=== PATIENT | female | born 1985 | race American Indian/Alaskan Native ===

== ENCOUNTER → 2018-12-31 | Outpatient (CLI) | payer OTHER ==
[~2018-12-31] MED LIST: AMOX500 PO; AZIT250; BENZ100A PO; CEPH500 PO; CYCL10 PO; DIAZ5 PO; DOXY100 PO; HYDACE5 PO; IBUP600 PO; LEVFLO500 PO; NAPR500 PO; NAPR550 PO; Norco 5-325 Ta1 EACH PO; OXYACE5T PO; PRED10 PO; PROACE100 PO; PROM25 PO; RXCLIN PO; RXCYCL10 PO; RXNAPNA550 PO; RXOXYACE PO; RXTRAM50 PO; SULTRIDS PO; TRAM50 PO
[2018-12-31 15:51] LABS: Source, Urine Voided
[2018-12-31 16:42] LABS: Bilirubin, Urine Neg (Neg); Blood, Urine Neg (Neg); Glucose Qualitative, Urine Neg (Neg); Ketones, Urine Neg (Neg); Leukocyte Esterase, Urine 1+ (Neg); Nitrite, Urine Neg (Neg); Protein, Urine Neg (Neg); Specific Gravity, Urine 1.015 (1.003-1.022); Urobilinogen, Urine NORM (Normal)
[2018-12-31 16:58] LABS: Appearance, Urine Clear (Clear); Color, Urine Yellow (P-Yellow)
[2018-12-31 16:59] LABS: Bacteria Mod /hpf; Red Blood Cells, Urine 0-2 /hpf (0-2); Squamous Epithelial Cells Mod /hpf (Few); White Blood Cells, Urine 0-2 /hpf (0-5)
[2018-12-31 17:01] LABS: U Amphetamine Screen Not Detected; U Barbituate Screen Not Detected; U Benzodiazapine Screen Not Detected; U Buprenorphine Screen Not Detected; U Cannabinoids Screen Not Detected; U Cocaine Screen Not Detected; U Methadone Screen Not Detected; U Methamphetamine Screen Not Detected; U Opiates Screen Not Detected; U Oxycodone Screen DETECTED; U Phencyclidine Screen Not Detected
[2018-12-31 17:02] LABS: U Propoxyphene Screen Not Detected
== END | disposition home or self-care (01) ==
LOC: LAB 14:00 → LAB SHORT 14:00
PROVIDERS: Obstetrics & Gynecology
DX: Z34.01 Encounter for supervision of normal first pregnancy, first trimester (principal)
CPT/HCPCS: 81001; 87086; G0480

== ENCOUNTER → 2019-01-06 | Outpatient (CLI) | payer OTHER ==
[2019-01-11 19:06] LABS: CHLAMYDIA BY NAA Negative (Negative); GONOCOCCUS BY NAA Negative (Negative); HPV 16 Negative (Negative); HPV 18 Negative (Negative); HPV OTHER HR TYPES Negative (Negative); TRICH VAG BY NAA Negative (Negative)
== END | disposition home or self-care (01) ==
LOC: LAB SHORT 10:52 → LAB 10:52
PROVIDERS: Obstetrics & Gynecology
DX: Z36.89 Encounter for other specified antenatal screening (principal)
CPT/HCPCS: 87491; 87591; 87624; 87661; G0123

== ENCOUNTER 2019-05-29 10:10 | Inpatient (IN) | payer OTHER ==
[~2019-05-29] VITALS: Ht 162.6 cm; Wt 62.0 kg
[2019-05-29] MEDS ORDERED: OMEP20ER (10:47)
[2019-05-29] MEDS ORDERED: PRENATAL TABLE1 EAC2 PO (10:47)
[2019-05-29 11:22] LABS: BASOPHILS ABSOLUTE AUTO 0.06 K/mm3 (0.00-0.23); BASOPHILS PERCENT AUTO 0 % (0-2); EOSINOPHILS ABSOLUTE AUTO 0.06 K/mm3 (0.00-0.68); EOSINOPHILS PERCENT AUTO 0 % (0-6); Hematocrit 36.5 % (33.0-51.0); Hemoglobin 12.3 g/dL (11.5-16.0); IMMATURE GRAN ABSOLUTE AUTO 0.13 K/mm3 (0.00-0.10); IMMATURE GRAN PERCENT AUTO 1 % (0-1); LYMPHOCYTES ABSOLUTE AUTO 1.19 K/mm3 (0.84-5.20); LYMPHOCYTES PERCENT AUTO 6 % (21-46); MONOCYTES ABSOLUTE AUTO 0.99 K/mm3 (0.16-1.47); MONOCYTES PERCENT AUTO 5 % (4-13); Mean Corpuscular HGB 30.9 pg (26.0-34.0); Mean Corpuscular HGB Conc 33.7 g/dL (31.5-36.5); Mean Corpuscular Volume 92 fL (80-100); Mean Platelet Volume 11.1 fL (9.1-12.4); NEUTROPHILS ABSOLUTE AUTO 18.29 K/mm3 (1.96-9.15); NEUTROPHILS PERCENT AUTO 88 % (41-73); Platelet Count 161 K/mm3 (150-400); RDW Coefficient Variation 13.8 % (11.7-14.2); RDW Standard Deviation 45.9 fL (35.1-46.3); Red Blood Cell Count 3.98 M/mm3 (3.80-5.20); White Blood Cell Count 20.72 K/mm3 (4.00-11.30)
--- NOTE | 2019-05-30 09:20 | NUR ---
RN ROUNDED ON MOM AND NB TO DO EDUCATION. MOM ASLEEP HOLDING NB AT BREAST, NB ALSO APPEARED TO BE SLEEPING. RN WOKE MOM AND ASKED IS SHE COULD HELP HER WITH AND IF SHE HAD ANY QUESTIONS, MOM SHOOK HEAD AND REPLIED "NO". RN EXPLAIN THE RISKS OF CO-SLEEPING AND REMOVED NB WITH MOMS PERMISSION AND PLACED HIM IN OPEN CRIB AT BEDSIDE, RESWADDLED AND MOVED CRIB NEXT TO BED. REPORT GIVEN TO RN CARING FOR COUPLET.
--- NOTE | 2019-05-30 11:06 | NUR ---
PT RESTING IN BED. JUST FINISHED BF NB. ARCHIE PAIN AT THIS TIME. HAS HELP FROM HER SISTER IN THE ROOM RIGHT NOW. DECLINES NEED FOR ANOTHER ICE PACK ON PERINEUM. NO COMPLAINTS OR CONCERNS AT THIS TIME.
[2019-05-30 11:48] LABS: Hematocrit 30.1 % (33.0-51.0); Hemoglobin 10.2 g/dL (11.5-16.0); Mean Corpuscular HGB 31.5 pg (26.0-34.0); Mean Corpuscular HGB Conc 33.9 g/dL (31.5-36.5); Mean Corpuscular Volume 93 fL (80-100); Mean Platelet Volume 11.1 fL (9.1-12.4); Platelet Count 158 K/mm3 (150-400); RDW Coefficient Variation 13.7 % (11.7-14.2); RDW Standard Deviation 46.4 fL (35.1-46.3); Red Blood Cell Count 3.24 M/mm3 (3.80-5.20); White Blood Cell Count 23.07 K/mm3 (4.00-11.30)
--- NOTE | 2019-05-30 14:06 | NUR ---
DISCUSSED WITH PATIENT WHAT HER LIVING SITUATION WAS AT HOME AND WHAT RESOURCES SHE HAD AVAILABLE TO HER. SHE REPORTS SHE LIVES AT HOME WITH HER DISABLED MOTHER. SHE IS SIGNED UP WITH [facility] AND HAS HAD A NURSE WHO WANTED TO COME VISIT HER AT HOME BUT THEN DECLINED HER COMING. ENCOURAGED PATIENT TO SIGN UP WITH [employer]. DISCUSSED SENDING A CORE REFERRAL AND HAVE SOMEONE AT LEAST GIVE HER A CALL ATHOME THE FIRST WEEK HOME. PT CONSENTS TO THAT. CORE REFERRAL SENT.
--- NOTE | 2019-05-30 14:45 | NUR ---
RN ROUNDED ON MOM AND NB TO DISCUSS . RN TALK WITH MOM ABOUT THE IMPORTANCE OF LATCHING NB CORRECTLY. NB DUE TO EAT. RN SHOWED MOM HOW TO GET NB SKIN TO SKIN, LINE NOSE UP WITH MOUTH, COMPRESS BREAST TO HELP NB GET MORE AREOLA IN MOUTH. INITIALLY MOM LATCH NB ON JUST NIPPLE AND MOM STATES IT WAS SUPER PAINFUL AND WAS YELLING. RN SHOWED MOM HOW TO DELATCH NB AND "HAMBURGER" BREAST TO GET A DEEPER LATCH. MOM DID NOT YELL OUT AND REPORTS THAT THE LATCH WAS ALOT BETTER. MOM VERBALIZED UNDERSTANDING AND DENIES ANY FURTHER QUESTIONS OR CONCERNS. RN ENCOURAGED MOM TO USE LANOLIN AFTER .
[2019-05-31 09:08] LABS: U Amphetamine Screen Not Detected; U Barbituate Screen Not Detected; U Benzodiazapine Screen Not Detected; U Methamphetamine Screen Not Detected
[2019-05-31 09:29] LABS: U Cocaine Screen Not Detected; U Methadone Screen Not Detected; U Opiates Screen Not Detected
[2019-05-31 09:30] LABS: U Buprenorphine Screen Not Detected; U Cannabinoids Screen Not Detected; U Oxycodone Screen Not Detected; U Propoxyphene Screen Not Detected
[2019-05-31 11:38] LABS: BASOPHILS ABSOLUTE AUTO 0.04 K/mm3 (0.00-0.23); BASOPHILS PERCENT AUTO 0 % (0-2); EOSINOPHILS ABSOLUTE AUTO 0.13 K/mm3 (0.00-0.68); EOSINOPHILS PERCENT AUTO 1 % (0-6); Hematocrit 29.9 % (33.0-51.0); IMMATURE GRAN ABSOLUTE AUTO 0.11 K/mm3 (0.00-0.10); IMMATURE GRAN PERCENT AUTO 1 % (0-1); LYMPHOCYTES ABSOLUTE AUTO 1.33 K/mm3 (0.84-5.20); LYMPHOCYTES PERCENT AUTO 8 % (21-46); MONOCYTES ABSOLUTE AUTO 0.84 K/mm3 (0.16-1.47); MONOCYTES PERCENT AUTO 5 % (4-13); Mean Corpuscular HGB 31.4 pg (26.0-34.0); Mean Corpuscular HGB Conc 33.4 g/dL (31.5-36.5); Mean Corpuscular Volume 94 fL (80-100); Mean Platelet Volume 10.7 fL (9.1-12.4); NEUTROPHILS ABSOLUTE AUTO 13.61 K/mm3 (1.96-9.15); NEUTROPHILS PERCENT AUTO 85 % (41-73); Platelet Count 180 K/mm3 (150-400); RDW Standard Deviation 47.9 fL (35.1-46.3); Red Blood Cell Count 3.18 M/mm3 (3.80-5.20); White Blood Cell Count 16.06 K/mm3 (4.00-11.30)
[2019-05-31] MEDS ORDERED: IBUP800 PO (11:57)
--- NOTE | 2019-05-31 13:00 | NUR ---
ASSUME PT CARE. PLAN TO D/C TO BOARDER STATUS. DISCUSSING BOARDER STATUS WITH PT. PT SEEMS OVERWHELMED WITH ALL THE D/C INSTRUCTIONS. GOING SLOW THROUGH D/C INSTRUCTIONS. PT ASKING QUESTIONS. PT REASSURED THAT [employer] STILL AVAILABLE FOR QUESTIONS THEY COME TO HER. HER SISTER PLANS TO HELP PT AT HOME WHEN SHE CAN. THEY DO NOT LIVE TOGETHER AND HER SISTER HAS A JOB. PT LIVES WITH HER DISABLED MOTHER WHO IS OF NO ASSISTANCE AT THIS TIME. DISCUSSED WITH PT HAVING SOME RESOURCE PEOPLE AVAILABLE IF SHE FEELS OVERWHELMED. DISCUSS RISKS OF SHAKING BABY SYNDROME IF PT WERE TO GET EXHAUSTED. DISCUSSED SAFER TO LAY BABY DOWN IN CRIB WITH NOTHING AROUND BABY AND OKAY FOR NB TO CRY. PT TO CHECK ON NB EVERY 10 MIN OR SO TO MAKE SURE BABY IS SAFE AND EVEN AFTER NB IS QUIET TO MAKE SURE NB IS SAFE. PT VERBALIZES UNDERSTANDING. PT INFORMED SHE CAN CALL ISIDRO OR DR ANDUJAR IF SHE FEELS ANY S/S OF PP DEPRESSION. PT VERBALIZES UDNERSTANDING
--- NOTE | 2019-05-31 13:37 | NUR ---
d/c instructions discussed and signed. pt asks appropriate questions. d/c instructions discussed with her sister at the bedside too.
--- NOTE | 2019-05-31 13:54 | NUR ---
D/C TO BOARDER STATUS
== END 2019-05-31 13:55 | disposition home or self-care (01) | DRG 807 ==
LOC: BC 10:10 → OBS 10:10 → BC 10:14 → OBS 10:28 → BC 10:31
PROVIDERS: Obstetrics & Gynecology; ADMIT Advanced Practice Midwife
PROC: 10907ZC Drainage of Amniotic Fluid, Therapeutic from Products of Conception, Via Natural or Artificial Opening (ICD-10-PCS; 2019-05-29)
PROC: 10H07YZ Insertion of Other Device into Products of Conception, Via Natural or Artificial Opening (ICD-10-PCS; 2019-05-29)
PROC: 3E0R3BZ Introduction of Anesthetic Agent into Spinal Canal, Percutaneous Approach (ICD-10-PCS; 2019-05-29)
PROC: 10E0XZZ Delivery of Products of Conception, External Approach (ICD-10-PCS; principal; 2019-05-30)
PROC: 0HQ9XZZ Repair Perineum Skin, External Approach (ICD-10-PCS; 2019-05-30)
DX: O99.334 Smoking (tobacco) complicating childbirth (principal); Z37.0 Single live birth; Z3A.39 39 weeks gestation of pregnancy; F17.210 Nicotine dependence, cigarettes, uncomplicated; O70.0 First degree perineal laceration during delivery; O76 Abnormality in fetal heart rate and rhythm complicating labor and delivery
CPT/HCPCS: 36415; 51702; 59070; 85025; 85027; 86850; 86900; 86901; J1885; J2001; J2210; J2590; J3010; J7120

== ENCOUNTER 2021-11-13 06:26 | Observation (INO) | payer OTHER ==
[~2021-11-13] VITALS: Ht 162.6 cm; Wt 59.0 kg
[~2021-11-13 06:26] MED LIST changes: +IBUP800 PO; +OMEP20ER; +PRENATAL TABLE1 EAC2 PO
[2021-11-13 07:55] LABS: BASOPHILS ABSOLUTE AUTO 0.02 K/mm3 (0.00-0.23); BASOPHILS PERCENT AUTO 0 % (0-2); EOSINOPHILS ABSOLUTE AUTO 0.14 K/mm3 (0.00-0.68); EOSINOPHILS PERCENT AUTO 1 % (0-6); Hematocrit 29.4 % (33.0-51.0); Hemoglobin 9.8 g/dL (11.5-16.0); IMMATURE GRAN ABSOLUTE AUTO 0.07 K/mm3 (0.00-0.10); IMMATURE GRAN PERCENT AUTO 1 % (0-1); LYMPHOCYTES ABSOLUTE AUTO 0.92 K/mm3 (0.84-5.20); LYMPHOCYTES PERCENT AUTO 9 % (21-46); MONOCYTES ABSOLUTE AUTO 0.47 K/mm3 (0.16-1.47); MONOCYTES PERCENT AUTO 4 % (4-13); Mean Corpuscular HGB Conc 33.3 g/dL (31.5-36.5); Mean Corpuscular Volume 90 fL (80-100); Mean Platelet Volume 10.3 fL (9.1-12.4); NEUTROPHILS ABSOLUTE AUTO 9.02 K/mm3 (1.96-9.15); NEUTROPHILS PERCENT AUTO 85 % (41-73); Platelet Count 166 K/mm3 (150-400); RDW Coefficient Variation 13.8 % (11.7-14.2); RDW Standard Deviation 45.6 fL (35.1-46.3); Red Blood Cell Count 3.27 M/mm3 (3.80-5.20); White Blood Cell Count 10.64 K/mm3 (4.00-11.30)
[2021-11-13 10:57] LABS: Source, Urine Clean Catch
[2021-11-13 11:14] LABS: Appearance, Urine Hazy (Clear); Bilirubin, Urine Neg (Neg); Blood, Urine Neg (Neg); Color, Urine Yellow (P-Yellow); Glucose Qualitative, Urine Neg (Neg); Ketones, Urine Neg (Neg); Leukocyte Esterase, Urine Neg (Neg); Nitrite, Urine Neg (Neg); Protein, Urine 1+ (Neg); Urobilinogen, Urine NORM (Normal)
[2021-11-13 12:17] LABS: Red Blood Cells, Urine 0-2 /hpf (0-2)
[2021-11-13 12:18] LABS: Bacteria Many /hpf; Squamous Epithelial Cells Mod /hpf (Few)
[2021-11-13 12:40] LABS: U Amphetamine Screen DETECTED; U Barbituate Screen Not Detected; U Benzodiazapine Screen Not Detected; U Buprenorphine Screen Not Detected; U Cannabinoids Screen Not Detected; U Cocaine Screen Not Detected; U Methadone Screen Not Detected; U Methamphetamine Screen DETECTED; U Opiates Screen DETECTED; U Oxycodone Screen Not Detected; U Phencyclidine Screen Not Detected; U Propoxyphene Screen Not Detected
--- NOTE | 2021-11-13 19:51 | NUR ---
RN ENTERED ROOM TO PERFORM SHIFT ASSESSMENT. PT ASLEEP ON SUPPORT PERSON BED. RN ATTEMPTED TO WAKE PT FOR VITALS AND ASSESSMENT AND PT DECLINED THIS AT THIS TIME AND CONTINUED TO SLEEP AFTER RN ASKED PT TWICE IF IT WAS OKAY TO PERFORM BOTH . RN ENCOURAGED PT TO PRESS CALL BUTTON WHEN AWAKE. IV LINES VISUALIZED IN PLACE AND PUMP SETTINGS FOR MAG AND LR WERE CORRECT AT THIS TIME.
[2021-11-14 07:10] LABS: HBSAG SCREEN Negative (Negative); HIV AB/P24 AG SCREEN Non Reactive (Non Reactive)
--- NOTE | 2021-11-14 08:16 | NUR ---
This RN tried to get assessment on pt this morning and pt is snoring and when trying to arouse, mumbles "no" to me when i ask her if i can get her babies on or if shes having pain or contractions. pt continues on magsulfate at 2 grams/hour and is not allowing this rn to perform reflex assessment or any other interventions. Susan support person "edward" awoke when I asked Meche if I could monitor the babies and edward told meche that she needed to let me and meche continued to mumble and say no. I told Edward and Meche to please call me when she awoke so that I could do an NST and evaluate if she was having contractions. Pt VSS at this time, will try in an hour if patient hasn't called to do NST and evaluate UCs.
--- NOTE | 2021-11-14 08:58 | NUR ---
RN CALLED [facility], TO REPORT NO CARE COUPLED WITH CONFIRMED METH/OPIOD USED DURING . INFORMATION TAKEN, THEY WILL DECIDE WITH TO DO WITH THAT.
[2021-11-14] MEDS ORDERED: SERT100 PO ×2 (10:38→10:40)
[2021-11-14] MEDS ORDERED: Ferosul325 MG PO (10:39)
--- NOTE | 2021-11-14 11:40 | NUR ---
Pt given written and verbal discharge instructions. Meds send to [facility] to dr rosa. I stressed the fact that she must seek regular care being high risk with twins, drug abuse, and having contractions at 28 weeks. Meche irritable but verbalizes understanding. iv dc/d and send home with sister Edward who plans to drive Edward to her Aunt Yazmin's house and establish care. Meche verbalizes labor precautions and went to return to the hospital of if emergency. paperwork signed, wheelchaired out to [employer] vehicle in which she discharged home with.
--- NOTE | 2021-11-14 11:45 | NUR ---
mag sulfate discontinued at 10:[address] rosa orders and new orders for pt to dc home with sister emmanuel
== END 2021-11-14 11:25 | disposition home or self-care (01) ==
LOC: BC 06:26 → OBS 06:26 → BC 10:51
PROVIDERS: Family Medicine; ADMIT Obstetrics & Gynecology
DX: O47.03 False labor before 37 completed weeks of gestation, third trimester (principal); O98.513 Other viral diseases complicating pregnancy, third trimester; U07.1 COVID-19; O99.513 Diseases of the respiratory system complicating pregnancy, third trimester; J98.8 Other specified respiratory disorders; O99.343 Other mental disorders complicating pregnancy, third trimester; F41.8 Other specified anxiety disorders; O99.333 Smoking (tobacco) complicating pregnancy, third trimester; F17.210 Nicotine dependence, cigarettes, uncomplicated; O99.323 Drug use complicating pregnancy, third trimester; F19.10 Other psychoactive substance abuse, uncomplicated; Z3A.29 29 weeks gestation of pregnancy
CPT/HCPCS: 36415; 76805; 76810; 76817; 81001; 85025; 86317; 86592; 86762; 86850; 86900; 86901; 87340; 87389; A9270; J0702; J2405; J3475; J7120

== ENCOUNTER 2024-01-03 07:13 | Emergency (ER) | payer OTHER ==
[~2024-01-03] VITALS: Ht 162.6 cm; Wt 49.9 kg
[~2024-01-03 07:13] MED LIST changes: +AMOCLA875 PO; +Ferosul325 MG PO; +SERT100 PO
[2024-01-03 08:13] LABS: BASOPHILS ABSOLUTE AUTO 0.03 K/mm3 (0.00-0.23); BASOPHILS PERCENT AUTO 0 % (0-2); EOSINOPHILS ABSOLUTE AUTO 0.27 K/mm3 (0.00-0.68); EOSINOPHILS PERCENT AUTO 3 % (0-6); Hematocrit 41.8 % (33.0-51.0); Hemoglobin 13.7 g/dL (11.5-16.0); IMMATURE GRAN ABSOLUTE AUTO 0.02 K/mm3 (0.00-0.10); IMMATURE GRAN PERCENT AUTO 0 % (0-1); LYMPHOCYTES ABSOLUTE AUTO 2.15 K/mm3 (0.84-5.20); LYMPHOCYTES PERCENT AUTO 20 % (21-46); MONOCYTES PERCENT AUTO 7 % (4-13); Mean Corpuscular HGB 29.8 pg (26.0-34.0); Mean Corpuscular HGB Conc 32.8 g/dL (31.5-36.5); Mean Corpuscular Volume 91 fL (80-100); Mean Platelet Volume 10.1 fL (9.1-12.4); NEUTROPHILS ABSOLUTE AUTO 7.49 K/mm3 (1.96-9.15); NEUTROPHILS PERCENT AUTO 70 % (41-73); Platelet Count 452 K/mm3 (150-400); RDW Coefficient Variation 13.3 % (11.7-14.2); White Blood Cell Count 10.76 K/mm3 (4.00-11.30)
[2024-01-03] MEDS ORDERED: Ketorolac Tromethamine 15mg Vial IV ONE (08:15)
[2024-01-03 08:31] LABS: Albumin, Blood 3.8 g/dL (3.4-5.0); Albumin/Globulin Ratio 0.9 (0.8-1.8); Bilirubin, Total 0.4 mg/dL (0.1-1.0); Calcium, Blood 10.1 mg/dL (8.5-10.1); Creatinine, Blood 0.76 mg/dL (0.40-1.00); Globulin, Blood 4.3 g/dL (2.2-4.0); Total Protein, Blood 8.1 g/dL (6.4-8.2)
[2024-01-03 09:49] LABS: Source, Urine Clean Catch
[2024-01-03 09:53] LABS: Appearance, Urine Hazy (Clear); Bilirubin, Urine Neg (Neg); Blood, Urine 1+ (Neg); Color, Urine Yellow (P-Yellow); Glucose Qualitative, Urine Neg (Neg); Ketones, Urine Neg (Neg); Leukocyte Esterase, Urine 3+ (Neg); Nitrite, Urine Pos (Neg); Protein, Urine 1+ (Neg); Specific Gravity, Urine 1.015 (1.003-1.022); Urobilinogen, Urine NORM (Normal)
[2024-01-03 10:38] LABS: Bacteria Many /hpf; Trichomonas Rare /hpf; White Blood Cells, Urine 25-50 /hpf (0-5)
[2024-01-03 10:42] LABS: Mucus Heavy (0-Heavy); Squamous Epithelial Cells Few /hpf (Few)
[2024-01-03] MEDS ORDERED: Trimethoprim/Sulfamethoxazole DS Tab PO ONE (10:55)
[2024-01-03 11:15] VITALS: BP 124/92
[2024-01-03] MEDS ORDERED: Bactrim Ds Tab1 EACH PO (11:15)
[2024-01-03] MEDS ORDERED: Flagyl500 MG PO (11:38)
[2024-01-03] MEDS ORDERED: MetroNIDAZOLE 500 MG Tab PO ONE (11:40)
== END 2024-01-03 11:52 | disposition home or self-care (01) ==
LOC: ER 07:13
PROVIDERS: Physician Assistant
DX: A59.9 Trichomoniasis, unspecified (principal); N39.0 Urinary tract infection, site not specified; Z79.899 Other long term (current) drug therapy; I10 Essential (primary) hypertension; F17.210 Nicotine dependence, cigarettes, uncomplicated
CPT/HCPCS: 80053; 81001; 83690; 85025; 87077; 87086; 87186; 96374; 99284-25; A9270; J1885

== ENCOUNTER 2024-03-12 13:36 | Inpatient (IN) | payer OTHER ==
[~2024-03-12] VITALS: Ht 162.6 cm; Wt 51.6 kg
[~2024-03-12 13:36] MED LIST changes: +Bactrim Ds Tab1 EACH PO; +Flagyl500 MG PO
[2024-03-12] MEDS ORDERED: NS 1,000 ML IV SCH ×2 (14:40→17:40)
[2024-03-12] MEDS ORDERED: Lidocaine 4% 1 Patch TOP ONE (14:40)
[2024-03-12] MEDS ORDERED: CefTRIAXone Sodium 2,000 MG in NS 100 ML IV ONE (14:40)
[2024-03-12] MEDS ORDERED: Vancomycin HCL 1,000 MG in NS 250 ML IV ONE (14:40)
[2024-03-12 14:53] LABS: BASOPHILS ABSOLUTE AUTO 0.02 K/mm3 (0.00-0.23); BASOPHILS PERCENT AUTO 0 % (0-2); EOSINOPHILS PERCENT AUTO 1 % (0-6); Hematocrit 32.4 % (33.0-51.0); IMMATURE GRAN ABSOLUTE AUTO 0.06 K/mm3 (0.00-0.10); IMMATURE GRAN PERCENT AUTO 1 % (0-1); LYMPHOCYTES ABSOLUTE AUTO 1.06 K/mm3 (0.84-5.20); LYMPHOCYTES PERCENT AUTO 8 % (21-46); MONOCYTES ABSOLUTE AUTO 1.09 K/mm3 (0.16-1.47); MONOCYTES PERCENT AUTO 8 % (4-13); Mean Corpuscular HGB 30.1 pg (26.0-34.0); Mean Corpuscular Volume 89 fL (80-100); Mean Platelet Volume 9.5 fL (9.1-12.4); NEUTROPHILS ABSOLUTE AUTO 10.65 K/mm3 (1.96-9.15); NEUTROPHILS PERCENT AUTO 82 % (41-73); Platelet Count 379 K/mm3 (150-400); RDW Coefficient Variation 13.4 % (11.7-14.2); RDW Standard Deviation 43.8 fL (35.1-46.3); Red Blood Cell Count 3.65 M/mm3 (3.80-5.20); White Blood Cell Count 12.98 K/mm3 (4.00-11.30)
[2024-03-12] MEDS ORDERED: Ondansetron HCl 2 MG / ML 2ML Vial ONE (15:02)
[2024-03-12] MEDS ORDERED: LORazepam 2 MG/ML 1ML Injection ONE (15:02)
[2024-03-12 15:05] LABS: Albumin, Blood 2.6 g/dL (3.4-5.0); Albumin/Globulin Ratio 0.6 (0.8-1.8); Bilirubin, Direct 0.2 mg/dL (0.0-0.3); Bilirubin, Total 1.2 mg/dL (0.1-1.0); Bun/Creatinine Ratio 17.4 (12.0-20.0); Calcium, Blood 8.2 mg/dL (8.5-10.1); Creatinine, Blood 0.52 mg/dL (0.40-1.00); Globulin, Blood 4.5 g/dL (2.2-4.0); Magnesium, Blood 2.1 mg/dL (1.6-2.4); Phosphorus, Blood 1.9 mg/dL (2.5-4.9); Potassium, Blood 3.7 mmol/L (3.5-5.5); Total Protein, Blood 7.1 g/dL (6.4-8.2)
[2024-03-12] MEDS ORDERED: LORazepam 2 MG/ML 1ML Injection IV ONE ×2 (15:10→15:15)
[2024-03-12] MEDS ORDERED: Morphine Sulfate 4 MG/1 ML Injection IV ONE (15:10)
[2024-03-12] MEDS ORDERED: Ondansetron HCl 2 MG / ML 2ML Vial IV ONE ×2 (15:10→15:15)
[2024-03-12 15:49] LABS: International Normalized Ratio 1.11; Prothrombin Time Results 11.8 Sec (9.7-11.5)
[2024-03-12] MEDS ORDERED: HYDROmorphone HCl/Pf 1MG SYR IV ONE (16:20)
[2024-03-12] MEDS ORDERED: FLU VACC TS2024-25(6MOS UP)/PF 45 MCG/0.5 ML SYRINGE IM SCH (17:35)
[2024-03-12] MEDS ORDERED: Ipratropium/Albuterol SulF 2.5-0.5MG/3 ML Amp INH PRN (17:35)
[2024-03-12] MEDS ORDERED: Ondansetron HCl 2 MG / ML 2ML Vial IV PRN (17:35)
[2024-03-12 17:39] LABS: Source, Urine Clean Catch
[2024-03-12 17:50] LABS: Appearance, Urine Clear (Clear); Bilirubin, Urine Neg (Neg); Blood, Urine Neg (Neg); Color, Urine Yellow (P-Yellow); Glucose Qualitative, Urine Neg (Neg); Ketones, Urine Neg (Neg); Leukocyte Esterase, Urine Neg (Neg); Nitrite, Urine Neg (Neg); Protein, Urine 1+ (Neg); Urobilinogen, Urine 1+ (Normal)
[2024-03-12] MEDS ORDERED: Potassium Chl 20MEQ/Water100ML 100 ML IV SCH (17:55)
[2024-03-12] MEDS ORDERED: Sodium Phosphate 30 MM in Dextrose 5% 500 ML IV STA (17:55)
[2024-03-12] MEDS ORDERED: FentaNYL Citrate 50 MCG/ML 2 ML Injection IV PRN (17:55)
[2024-03-12] MEDS ORDERED: Enoxaparin 40 MG/0.4 ML SYR SC SCH (18:00)
[2024-03-12] MEDS ORDERED: Piperacillin/Tazobactam Sod 4.5 GM in NS 100 ML IV SCH (18:00)
[2024-03-12 18:06] LABS: U Amphetamine Screen DETECTED; U Barbituate Screen Not Detected; U Benzodiazapine Screen Not Detected; U Buprenorphine Screen Not Detected; U Cannabinoids Screen Not Detected; U Cocaine Screen Not Detected; U Methadone Screen Not Detected; U Methamphetamine Screen DETECTED; U Opiates Screen Not Detected; U Oxycodone Screen Not Detected; U Phencyclidine Screen Not Detected
[2024-03-12] MEDS ORDERED: NS 1,000 ML IV ONE ×2 (18:27→19:36)
[2024-03-12 18:40] LABS: Influenza A, PCR NEGATIVE (NEGATIVE); Influenza B, PCR NEGATIVE (NEGATIVE); Resp Syncytial Virus, PCR NEGATIVE (NEGATIVE); SARS-Cov-2 (COVID-19) PCR, MMC NEGATIVE (NEGATIVE)
[2024-03-12 19:38] VITALS: BP 132/87
[2024-03-12] MEDS ORDERED: NS 250 ML IV PRN (19:45)
[2024-03-12 23:06] VITALS: BP 127/80
[2024-03-13 04:22] VITALS: BP 120/82
[2024-03-13 05:15] LABS: BASOPHILS ABSOLUTE AUTO 0.03 K/mm3 (0.00-0.23); BASOPHILS PERCENT AUTO 0 % (0-2); EOSINOPHILS ABSOLUTE AUTO 0.22 K/mm3 (0.00-0.68); EOSINOPHILS PERCENT AUTO 3 % (0-6); Hematocrit 31.6 % (33.0-51.0); Hemoglobin 10.5 g/dL (11.5-16.0); IMMATURE GRAN ABSOLUTE AUTO 0.02 K/mm3 (0.00-0.10); IMMATURE GRAN PERCENT AUTO 0 % (0-1); LYMPHOCYTES PERCENT AUTO 17 % (21-46); MONOCYTES ABSOLUTE AUTO 0.73 K/mm3 (0.16-1.47); MONOCYTES PERCENT AUTO 9 % (4-13); Mean Corpuscular HGB 29.7 pg (26.0-34.0); Mean Corpuscular HGB Conc 33.2 g/dL (31.5-36.5); Mean Corpuscular Volume 89 fL (80-100); NEUTROPHILS ABSOLUTE AUTO 5.81 K/mm3 (1.96-9.15); NEUTROPHILS PERCENT AUTO 71 % (41-73); Platelet Count 401 K/mm3 (150-400); RDW Coefficient Variation 13.2 % (11.7-14.2); RDW Standard Deviation 43.4 fL (35.1-46.3); Red Blood Cell Count 3.54 M/mm3 (3.80-5.20); White Blood Cell Count 8.21 K/mm3 (4.00-11.30)
--- NOTE | 2024-03-13 05:38 | NUR ---
SHIFT SUMMARY PATIENT ARRIVED TO PCU 06 AROUND 2029 THIS SHIFT. PATIENT IS ALERT, ORIENTED x3-4. WILLING TO ANSWER MOST QUESTIONS BUT IS AGITATED WITH THE AMOUNT OF QUESTIONS. PATIENT SITTING UP IN BED ROCKING BACK AND FORTH ON INITAL ASSESSMENT D/T RIB PAIN FROM "CPR". MEDICATED PER EMAR FOR PAIN WITH RELIEF. BP STABLE. PATIENT ON RA WITH SPO2 >90%. TELE READING ST 100s. PATIENT STANDBY ASSIST IN ROOM. USED BEDSIDE COMMODE, ADEQUATE OUTPUT. PATIENT REQUESTING SNACKS T/O NIGHT. PATIENT SLEPT FOR MAJORITY OF SHIFT AFTER SHE WAS ABLE TO GET COMFORTABLE. NO OTHER CHANGES, WILL REPORT TO DAY SHIFT RN.
[2024-03-13 05:56] LABS: Albumin, Blood 2.3 g/dL (3.4-5.0); Albumin/Globulin Ratio 0.6 (0.8-1.8); Bilirubin, Total 0.9 mg/dL (0.1-1.0); Calcium, Blood 8.6 mg/dL (8.5-10.1); Creatinine, Blood 0.62 mg/dL (0.40-1.00); Potassium, Blood 3.6 mmol/L (3.5-5.5); Total Protein, Blood 6.3 g/dL (6.4-8.2)
[2024-03-13 07:32] VITALS: BP 148/83
[2024-03-13] MEDS ORDERED: Guaifenesin/Dextromethorphan Syrup 5 ML UDC PO PRN (08:25)
[2024-03-13] MEDS ORDERED: Ketorolac Tromethamine 15mg Vial IV PRN (08:35)
[2024-03-13] MEDS ORDERED: MethylPREDNISolone Sod Succ 125 MG Vial IV SCH (09:00)
--- NOTE | 2024-03-13 09:55 | NUR ---
TRANSFER NOTE PT A&O, VSS. C/O OF RIB PAIN TODAY, MEDICATED W/ 25 MCG FENTANYL PER EMAR. PT ABLE TO AMBULATED SBA TO BATHROOM TO VOID THIS AM. ECHO IN ROOM THIS AM. MD VARGAS IN ROOM TO ASSESS. REPORT GIVEN TO MEDICAL RN. PT TRANSFERRED APPROX 0930 TO ROOM 353.
--- NOTE | 2024-03-13 09:57 | NUR ---
TRANSFER PT ARRIVED TO [facility] AT 0954. THIS RN RECEIVED REPORT FROM MARILOU FLYNN. PT IS AOX4, ON TELE CURRENTLY. PT ENDORSES PAIN ON RIGHT SIDE 9.
--- NOTE | 2024-03-13 10:06 | NUR ---
PT C/O OF PAIN, THIS RN WENT TO GET MEDICATION TO TREAT, UPON RETURNING, THIS RN ATTEMPTED TO SCAN PT BRACELET AND PT REFUSED. RN TOLD PATIENT, "OK, WELL I AM JUST GONNA HANG ONTO THIS PAIN MEDICATION THEN. IV TORADOL OUTSIDE IN ROOM LOCK BOX.
[2024-03-13 14:20] LABS: Adenovirus Detected (NOT DETECT); Bordetella pertussis Not Detected (NOT DETECT); Chlamydophila pneumoniae Not Detected (NOT DETECT); Coronavirus 229E Not Detected (NOT DETECT); Coronavirus HKU1 Not Detected (NOT DETECT); Coronavirus NL63 Not Detected (NOT DETECT); Coronavirus OC43 Not Detected (NOT DETECT); Human Metapneumovirus Not Detected (NOT DETECT); Human Rhinovirus/Enterovirus Not Detected (NOT DETECT); Influenza A/2009-H1 Not Detected (NOT DETECT); Influenza A/H1 Not Detected (NOT DETECT); Influenza A/H3 Not Detected (NOT DETECT); Influenza B Not Detected (NOT DETECT); Mycoplasma pneumoniae Not Detected (NOT DETECT); Parainfluenza Virus 1 Not Detected (NOT DETECT); Parainfluenza Virus 2 Not Detected (NOT DETECT); Parainfluenza Virus 3 Not Detected (NOT DETECT); Parainfluenza Virus 4 Not Detected (NOT DETECT); Respiratory Syncytial Virus Not Detected (NOT DETECT); SARS-Cov-2 (COVID-19), BioFire Not Detected (NOT DETECT)
[2024-03-13 16:03] VITALS: BP 127/73
--- NOTE | 2024-03-13 16:25 | NUR ---
SHIFT SUMMARY PT AOX4, COOPERATIVE, ABLE TO MAKE NEEDS KNOWN. ON DROPLET PRECAUTION FOR ADENOVIRUS. PT HAS REPORTED RIB PAIN, MEDICATED WITH TORADOL IV. PT HAS NOT BEEN OUT OF BED FAR THIS RN IS AWARE. EATING WELL, TOLERATING MEDICATONS WELL. BED IN LOWEST POSITION, CALL LIGHT WITHIN REACH.
--- NOTE | 2024-03-13 17:39 | NUR ---
SHIFT SUMMARY PT AOX4, COOPERATIVE, ABLE TO MAKE NEEDS KNOWN. PT ON DROPLET PRECAUTION FOR ADENOVIRUS. FAMILY IS BEDISDE WEARING MASK. PT HAS NOT GOTTEN OUT OF BED SINCE BEING TRANSFERRED, COMPLAINTS OF PAIN ON RIBS FROM HX. MEDICATED PER EMAR. TOLERATING MEDS WELL. BED IN LOWEST POSITION, CALL LIGHT WITHIN REACH.
[2024-03-13 20:15] VITALS: BP 132/79
[2024-03-14 05:54] VITALS: BP 133/89
--- NOTE | 2024-03-14 06:00 | NUR ---
SHIFT SUMMARY: AMINATA IS A&OX4. VSS, NO ACUTE EVENTS OVERNIGHT. PT HAS NOT URINATED THIS SHIFT AND DENIES THE NEED TO. PT HAS RESTED QUIETLY IN BED WITH HER EYES CLOSED FOR THE MAJORITY OF THE SHIFT, OCCASIONALLY WAKING AND REQUESTING SNACKS, THEN RETURNING TO RESTING. SHE MOVES HERSELF INDEPENDENTLY IN BED. IV TO RIGHT FOREARM AND LEFT AC PATENT. SHE REPORTS ADEQUATE PAIN RELIEF WITH MEDICATIONS PER JUN. SHE IS LYING IN BED WITH THE CALL LIGHT IN REACH, BED IN LOWEST POSITION. WILL GIVE REPORT TO DAY SHIFT RN.
[2024-03-14 07:37] VITALS: BP 126/71
[2024-03-14] MEDS ORDERED: Metoprolol Succinate 25 MG TABCR PO SCH (09:00)
[2024-03-14] MEDS ORDERED: Losartan Potassium 25 MG Tab PO SCH (09:00)
[2024-03-14 16:09] VITALS: BP 143/76
--- NOTE | 2024-03-14 16:46 | NUR ---
SHIFT SUMMARY PT AOX3/4, COOPERATIVE, UNINTERESTED WITH CARE. EXPRESSION PAIN IN RIBS AND CHEST AREA FROM FRIEND PERFORMING CPR. HAS NOT URINATED SINCE BEFORE BEIG ADMITTED, PERFORMED BLADDER SCAN EARLIER IN SHIFT, 53ML IN BLADDER. TOLERATING MEDICATIONS WELL. BED IN LOWEST POSITION, CALL LIGHT WITHIN REACH.
[2024-03-14 19:41] VITALS: BP 119/78
[2024-03-14] MEDS ORDERED: Colchicine 0.6 MG TAB PO SCH (20:00)
[2024-03-14] MEDS ORDERED: Aspirin 325 MG Tab PO SCH (21:00)
[2024-03-15 02:35] VITALS: BP 122/71
[2024-03-15 07:35] VITALS: BP 120/68
--- NOTE | 2024-03-15 08:42 | NUR ---
SHIFT SUMMARY PT IS A&OX4. VSS ON RA. PER TELEMETRY PT IS SR @63 BPM. AT 0505 THIS MORNING HAD 2 BEATS AT 39, THEN WENT TO 46 BPM. PT WAS ASYMPTOMATIC, SLEEPING. C/O 10/10 PAIN IN HER STERNUM AREA AND BACK. PT HAS NON-PRODUCTIVE HACKING, MOIST COUGH. MEDICATED PER EMAR WITH PRN IV TORADOL AND 25MCG IV FENTANYL. PT TOLERATING A REGULAR DIET WITH GOOD APPETITE. PT HAS YET TO VOID. BLADDER SCAN THIS SHIFT WAS 22ML. NO BM THIS SHIFT. NOOB THIS SHIFT. DROPLET PRECAUTIONS MAINTAINED FOR ADENOVIRUS. BED IN LOWEST POSITION, CALL LIGHT WITHIN REACH.
[2024-03-15] MEDS ORDERED: Empagliflozin 10 MG TAB PO SCH (09:00)
[2024-03-15] MEDS ORDERED: OxyCODONE 5 mg/Acetamin 325 mg TABLET PO PRN (09:45)
[2024-03-15] MEDS ORDERED: AMOCLA875 PO (10:31)
[2024-03-15] MEDS ORDERED: COLCHICINE0.6 MG PO (10:32)
[2024-03-15] MEDS ORDERED: Tasprin325 MG PO (10:32)
[2024-03-15] MEDS ORDERED: ROBITUSSIN100 MG/5 M PO (10:39)
[2024-03-15] MEDS ORDERED: JARDIANCE10 MG PO (10:39)
[2024-03-15] MEDS ORDERED: LOSARTAN POTASS25 M2 PO (10:40)
[2024-03-15] MEDS ORDERED: OMEP20ER PO (10:41)
[2024-03-15] MEDS ORDERED: METO25ER PO (10:41)
[2024-03-15] MEDS ORDERED: Percocet 5-3251 EACH PO (10:42)
[2024-03-15] MEDS ORDERED: PRED20 PO (10:42)
[2024-03-15] MEDS ORDERED: VISBIOME 112.51 EACH (10:43)
--- NOTE | 2024-03-15 12:47 | NUR ---
DISCHARGE SUMMARY PT DC THIS SHIFT. DC INSTRUCTION GONE OVER WITH PT WHOM STATED UNDERSTANDING. ZIO PATCH IN PLACE PRIOR TO PT DC THIS SHIFT. PT HARD SCRIPT GIVEN TO PT AND PLACED IN DC FOLDER. PT WAS ESCORTED OUT VIA WHEELCHAIR BY SOAP TENDER.
[2024-03-16] MEDS ORDERED: Colchicine 0.6 MG TAB PO SCH (09:00)
== END 2024-03-15 12:07 | disposition home or self-care (01) | DRG 308 ==
LOC: ER 13:36 → PCU 16:53 → MEDS 16:53 → PCU 19:27 → MEDS 03-13 09:53
PROVIDERS: Internal Medicine; Student in an Organized Health Care Education/Training Program; ADMIT Internal Medicine
DX: R00.0 Tachycardia, unspecified (principal); A41.89 Other specified sepsis; J12.0 Adenoviral pneumonia; I50.20 Unspecified systolic (congestive) heart failure; J44.0 Chronic obstructive pulmonary disease with (acute) lower respiratory infection; I31.9 Disease of pericardium, unspecified; J44.1 Chronic obstructive pulmonary disease with (acute) exacerbation; R50.9 Fever, unspecified; I42.8 Other cardiomyopathies; F15.10 Other stimulant abuse, uncomplicated; F41.9 Anxiety disorder, unspecified; F32.A Depression, unspecified; Z88.5 Allergy status to narcotic agent; I11.0 Hypertensive heart disease with heart failure; E87.6 Hypokalemia; E83.39 Other disorders of phosphorus metabolism; F17.210 Nicotine dependence, cigarettes, uncomplicated; Z71.6 Tobacco abuse counseling; D64.9 Anemia, unspecified; Z90.49 Acquired absence of other specified parts of digestive tract
CPT/HCPCS: 0202U; 0241U; 36415; 70450; 71046; 80053; 81025; 82248; 83605; 83735; 83880; 84100; 84145; 84484; 85025; 85610; 85730; 87040; 93005; 93010; 93246; 93306; 94760; 96365; 96367; 96375; 99285-25; A9270; J0696; J1171; J1650; J1885; J2060; J2405; J2543; J2919; J3010; J3370; J3480; J7030; J7050; J7060

== ENCOUNTER 2024-04-19 11:24 | Emergency (ER) | payer OTHER ==
[~2024-04-19] VITALS: Ht 162.6 cm; Wt 50.4 kg
[~2024-04-19 11:24] MED LIST changes: +COLCHICINE0.6 MG PO; +JARDIANCE10 MG PO; +LOSARTAN POTASS25 M2 PO; +METO25ER PO; +OMEP20ER PO; +PRED20 PO; +Percocet 5-3251 EACH PO; +ROBITUSSIN100 MG/5 M PO; +Tasprin325 MG PO; +VISBIOME 112.51 EACH
[2024-04-19 11:49] VITALS: BP 124/93
[2024-04-19] MEDS ORDERED: Ketorolac Tromethamine 30mg Vial IV ONE (11:55)
[2024-04-19 12:38] LABS: BASOPHILS ABSOLUTE AUTO 0.05 K/mm3 (0.00-0.23); BASOPHILS PERCENT AUTO 1 % (0-2); EOSINOPHILS ABSOLUTE AUTO 0.27 K/mm3 (0.00-0.68); EOSINOPHILS PERCENT AUTO 3 % (0-6); Hematocrit 39.4 % (33.0-51.0); Hemoglobin 12.9 g/dL (11.5-16.0); IMMATURE GRAN ABSOLUTE AUTO 0.02 K/mm3 (0.00-0.10); IMMATURE GRAN PERCENT AUTO 0 % (0-1); LYMPHOCYTES ABSOLUTE AUTO 1.28 K/mm3 (0.84-5.20); LYMPHOCYTES PERCENT AUTO 13 % (21-46); MONOCYTES ABSOLUTE AUTO 0.58 K/mm3 (0.16-1.47); MONOCYTES PERCENT AUTO 6 % (4-13); Mean Corpuscular HGB 29.3 pg (26.0-34.0); Mean Corpuscular HGB Conc 32.7 g/dL (31.5-36.5); Mean Corpuscular Volume 89 fL (80-100); Mean Platelet Volume 10.1 fL (9.1-12.4); NEUTROPHILS ABSOLUTE AUTO 7.71 K/mm3 (1.96-9.15); NEUTROPHILS PERCENT AUTO 78 % (41-73); Platelet Count 295 K/mm3 (150-400); RDW Coefficient Variation 13.8 % (11.7-14.2); RDW Standard Deviation 45.3 fL (35.1-46.3); Red Blood Cell Count 4.41 M/mm3 (3.80-5.20); White Blood Cell Count 9.91 K/mm3 (4.00-11.30)
[2024-04-19 13:15] LABS: Albumin, Blood 2.9 g/dL (3.4-5.0); Albumin/Globulin Ratio 0.6 (0.8-1.8); Bilirubin, Total 0.3 mg/dL (0.1-1.0); Bun/Creatinine Ratio 17.5 (12.0-20.0); C-REACTIVE PROTEIN, EXT RANGE 4.2 mg/dL (0.000-0.300); Calcium, Blood 9.2 mg/dL (8.5-10.1); Creatinine, Blood 0.51 mg/dL (0.40-1.00); Globulin, Blood 4.5 g/dL (2.2-4.0); Potassium, Blood 4.6 mmol/L (3.5-5.5); Total Protein, Blood 7.4 g/dL (6.4-8.2)
== END 2024-04-19 15:59 | disposition left against medical advice (07) ==
LOC: ER 11:24
PROVIDERS: Student in an Organized Health Care Education/Training Program
DX: L02.411 Cutaneous abscess of right axilla (principal); Z53.29 Procedure and treatment not carried out because of patient's decision for other reasons
CPT/HCPCS: 76882; 80053; 83605; 85025; 85651; 86140; 87040; 93005; 93010; 99283-25